=== PATIENT | male | born 1945 | race Caucasian/White ===

== ENCOUNTER → 2016-09-18 | Day surgery (SDC) | payer MEDICARE, OTHER ==
[~2016-09-18] MED LIST: Lactated Ringers 1,000 ML IV SCH; Propofol 200 MG/20 ML SDV IV ONE
[2016-09-18 10:03] VITALS: BP 116/53
--- NOTE | 2016-09-18 14:44 | OR ---
DATE OF OPERATION: 09/18/2016 PREOPERATIVE DIAGNOSIS: FOLLOWUP POLYPS. POSTOPERATIVE DIAGNOSIS: FOLLOWUP POLYPS. SURGEON: Arron Rodríguez MD PROCEDURE: FULL-LENGTH COLONOSCOPY WITH SNARE POLYPECTOMY X2. 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 COMPLICATIONS: None. SPECIMEN: 1. Tubular adenoma, ascending colon. 2. Villous adenoma, rectal vault. FINDINGS: 1. Full-length colonoscopy. 2. Tubular adenoma less than 0.5 cm, ascending colon. 3. Villous adenoma greater than 0.5 cm, rectal vault. RECOMMENDATIONS: Followup colonoscopy in 1 year. INDICATIONS: Mr. Salazar has a history of polyps. He is in for routine followup scope. DESCRIPTION OF PROCEDURE: The patient was prepped and draped, placed in the left lateral decubitus position. A lubricated Olympus colonoscope was inserted and easily advanced to the cecum. Direct visualization of the ileocecal valve and appendiceal orifice was accomplished. Bowel prep was adequate. Upon withdrawal of the scope, cecal pouch was benign. At the distal ascending colon, the patient had a small tubular adenoma stalk. This was removed with a snare and suctioned in a polyp trap #1 without difficulty. The rest of the transverse and descending colons were unremarkable. Throughout the sigmoid colon, I found no signs of any polyps, mass, ulceration, or bleeding sites. No vascular abnormalities or signs of colitis. In the rectal vault, the patient had a larger villous adenoma, quite flat, probably 1 cm or 1.2 cm in size. We were able to remove this in its entirety down into the mucosa with 3 separate snare removals and suctioned in a polyp trap #2 without difficulty. Retroflexion of scope in the rectum showed no anal lesions. Air was then suctioned, scope removed without complication. LAUREL/DUSTIN /[id number]
== END ==
LOC: CC.SDS 08:01
PROVIDERS: ATTEND Family Medicine
DX: Z12.11 Encounter for screening for malignant neoplasm of colon (principal); D12.2 Benign neoplasm of ascending colon; D12.8 Benign neoplasm of rectum; Z86.010 Personal history of colon polyps; Z88.0 Allergy status to penicillin; I10 Essential (primary) hypertension; E04.9 Nontoxic goiter, unspecified; N40.0 Benign prostatic hyperplasia without lower urinary tract symptoms; Z79.899 Other long term (current) drug therapy; Z90.49 Acquired absence of other specified parts of digestive tract; Z98.890 Other specified postprocedural states; Z78.9 Other specified health status
CPT/HCPCS: 45385; J7120; 00810; 88305; J2704

== ENCOUNTER → 2020-11-15 | Day surgery (SDC) | payer MEDICARE, OTHER ==
[~2020-11-15] MED LIST changes: +Ketamine 200 MG/20 ML MDV ONE; -Propofol 200 MG/20 ML SDV IV ONE; +Propofol 200 MG/20 ML SDV ONE; +fentaNYL 100 MCG/2 ML SDV ONE
[2020-11-15 09:30] VITALS: BP 135/73; PULSE 73
--- NOTE | 2020-11-15 10:45 | OR ---
DATE OF OPERATION: 11/15/2020 PREOPERATIVE DIAGNOSIS: HISTORY OF POLYPS. POSTOPERATIVE DIAGNOSIS: HISTORY OF POLYPS. SURGEON: Arron Rodríguez MD PROCEDURE: FULL-LENGTH COLONOSCOPY WITH SNARE POLYPECTOMY X1. ANESTHESIA: MAC. COMPLICATIONS: None. SPECIMEN: Villous adenoma, rectal vault, approximately 6 or 7 mm. FINDINGS: 1. Full-length diagnostic colonoscopy. 2. Villous lesion, rectal vault. 3. Moderate to severe sigmoid diverticulosis. RECOMMENDATIONS: Followup colonoscopy in 3 to 5 years pending path report. INDICATIONS: The patient had a prior history of a larger tubulovillous lesion in his rectum, he had a 3-year followup. This is a 5-year followup in that regard. DESCRIPTION OF PROCEDURE: The patient was prepped and draped, placed in the left lateral decubitus position. A lubricated Olympus colonoscope was inserted and easily advanced to the cecum. Direct visualization of the ileocecal valve was accomplished. The bowel prep was excellent. Upon withdrawal of the scope, brief intubation in the terminal ileum was benign. The cecum, ascending, and transverse colon were completely unremarkable. The patient had moderate to severe diverticular disease throughout the sigmoid and into the rectosigmoid junction. In the left colon, I could find no other polyps, masses, ulceration, or bleeding sites. No vascular abnormalities or signs of colitis. Right in the rectal vault, the patient had a small benign-appearing bilobed villous lesion, which was removed in its majority with a snare, and we were able to suction that into polyp trap without any problem. There were two small flatter portions, which we could not remove with the snare, and they were taken with forceps. Retroflexion of the scope in the rectum showed no perianal lesions. Air was suctioned. Scope was removed without complication. LAUREL/DUSTIN /[id number]
== END ==
LOC: CC.SDS 07:22
PROVIDERS: ATTEND Family Medicine
DX: Z12.11 Encounter for screening for malignant neoplasm of colon (principal); D12.8 Benign neoplasm of rectum; K57.30 Diverticulosis of large intestine without perforation or abscess without bleeding; N40.0 Benign prostatic hyperplasia without lower urinary tract symptoms; E11.9 Type 2 diabetes mellitus without complications; I10 Essential (primary) hypertension; M10.9 Gout, unspecified; Z86.79 Personal history of other diseases of the circulatory system; Z86.010 Personal history of colon polyps; Z88.0 Allergy status to penicillin; Z79.899 Other long term (current) drug therapy
CPT/HCPCS: 00812; 45385; 88305; 99100; J2704; J3010; J7120

== ENCOUNTER 2024-12-15 06:48 | Day surgery (SDC) | payer MEDICARE, OTHER ==
[2024-12-15] MEDS: Lactated Ringers 1,000 ML IV SCH (07:08)
[2024-12-15] MEDS ORDERED: fentaNYL 50 MCG/ML SDV ONE (07:28)
[2024-12-15] MEDS ORDERED: Ketamine 200 MG/20 ML MDV ONE (07:28)
[2024-12-15] MEDS ORDERED: Midazolam 1 MG/ML 2 ML SDV ONE (07:28)
[2024-12-15] MEDS ORDERED: Propofol 200 MG/20 ML SDV ONE (07:28)
[2024-12-15] MEDS ORDERED: Flumazenil 0.1 MG/ML 5 ML MDV ONE (07:28)
[2024-12-15 09:05] VITALS: BP 111/57; PULSE 60
== END 2024-12-15 09:00 | disposition home or self-care (01) ==
LOC: CC.SDS 06:48
PROVIDERS: ATTEND Family Medicine
DX: Z12.11 Encounter for screening for malignant neoplasm of colon (principal); D12.0 Benign neoplasm of cecum; K57.30 Diverticulosis of large intestine without perforation or abscess without bleeding; I10 Essential (primary) hypertension; E11.9 Type 2 diabetes mellitus without complications; Z88.0 Allergy status to penicillin; Z79.899 Other long term (current) drug therapy; Z86.0100 Personal history of colon polyps, unspecified
CPT/HCPCS: 00811; 45385; 88305; 99100; J2250; J2704; J3010; J3490; J7120